=== PATIENT | female | born 1955 | race Caucasian/White ===

== ENCOUNTER 2018-07-06 07:43 | Outpatient (CLI) | payer BC ==
--- NOTE | 2018-07-06 08:57 | MMO ---
Bilateral MAMMO Bilat Screen [facility]DI+STORM. CLINICAL HISTORY: Patient is 63 years old and is seen for screening. The patient has the following family history of breast cancer: maternal aunt and cousin female, maternal. The patient has no personal history of cancer. VIEWS: The views performed were: bilateral craniocaudal with tomosynthesis and bilateral mediolateral oblique with tomosynthesis. FILMS COMPARED: The present examination has been compared to prior imaging studies performed at [facility] on 06/15/2000, 06/17/2001, 06/19/2002, 06/20/2003, 06/23/2004, 07/31/2005, 01/26/2006, 08/06/2006, 11/23/2007, 05/23/2010, 06/26/2011, 06/28/2012, 06/29/2013, 07/13/2014, 07/15/2015 and 07/16/2016. MAMMOGRAM FINDINGS: The breasts are heterogeneously dense, which could obscure a lesion on mammography. Finding 1: There is a stable intramammary lymph node seen in the right breast. Finding 2: There are benign appearing calcifications seen in both breasts. There are no suspicious masses, suspicious calcifications, or new areas of architectural distortion. IMPRESSION: THERE IS NO MAMMOGRAPHIC EVIDENCE OF MALIGNANCY. A ROUTINE FOLLOW-UP MAMMOGRAM IN 1 YEAR IS RECOMMENDED. THE RESULTS OF THIS EXAM WERE SENT TO THE PATIENT. ACR BI-RADS Category 2 - Benign finding MAMMOGRAPHY NOTE: 1. A negative mammogram report should not delay a biopsy if a dominant of clinically suspicious mass is present. 2. Approximately 10% to 15% of breast cancers are not detected by mammography. 3. Adenosis and dense breasts may obscure an underlying neoplasm.
== END 2018-07-06 07:44 | disposition home or self-care (01) ==
LOC: BICMAMMO 07:43
PROVIDERS: ATTEND Obstetrics & Gynecology
DX: Z12.31 Encounter for screening mammogram for malignant neoplasm of breast (principal); Z80.3 Family history of malignant neoplasm of breast
CPT/HCPCS: 77063; 77067

== ENCOUNTER 2018-08-05 08:35 | Outpatient (CLI) | payer BC ==
--- NOTE | 2018-08-05 09:34 | RAD ---
Biphasic upper GI: HISTORY: Epigastric pain FINDINGS: Swallowing was grossly normal. There is unobstructed flow of contrast through the esophagus into the stomach, duodenum and proximal jejunum. No obstructing mass, stricture, ulcer or diverticulum is seen. A small hiatal hernia with mild reflux is noted. There is tortuosity of the upper thoracic esophagus with impression from the aortic arch. IMPRESSION: 1. Small hiatal hernia with mild GE reflux. 2. Tortuous proximal esophagus with impression by the adjacent thoracic aorta.
== END 2018-08-05 08:36 | disposition home or self-care (01) ==
LOC: RAD 08:35
PROVIDERS: ATTEND Internal Medicine Gastroenterology
DX: R10.13 Epigastric pain (principal); R68.81 Early satiety; R63.8 Other symptoms and signs concerning food and fluid intake; Z79.1 Long term (current) use of non-steroidal anti-inflammatories (NSAID); K21.9 Gastro-esophageal reflux disease without esophagitis; K44.9 Diaphragmatic hernia without obstruction or gangrene
CPT/HCPCS: 74247

== ENCOUNTER 2018-11-14 16:21 | Inpatient (IN) | payer BC ==
[2018-11-14] MEDS ORDERED: Aspirin Chewable 81 MG TAB ONE (17:48)
[2018-11-14] MEDS ORDERED: Senokot S 8.6-50 MG TAB PO PRN (20:24)
[2018-11-14] MEDS ORDERED: Acetaminophen 325 MG TAB PO PRN (20:24)
[2018-11-14] MEDS ORDERED: Zolpidem Tartrate 5 MG TAB PO PRN (20:24)
[2018-11-14] MEDS ORDERED: Calcium Carbonate 500 MG ChewTAB PO PRN (20:24)
[2018-11-14] MEDS ORDERED: HYDROcodone/Acetaminophen 5/325 mg Tablet PO PRN (20:24)
[2018-11-14] MEDS ORDERED: Ondansetron ODT 4 MG TAB PO PRN (20:24)
[2018-11-14] MEDS ORDERED: Bisacodyl 10 MG SUPP PR PRN (20:24)
[2018-11-14] MEDS ORDERED: Ibuprofen 200 MG TAB PO PRN (20:24)
[2018-11-14] MEDS ORDERED: Loperamide HCl 2 MG CAP PO PRN (20:24)
[2018-11-14 20:43] LABS: Troponin I Less than 0.010 ng/mL (< 0.028)
[2018-11-14] MEDS: Famotidine 20 MG TAB PO SCH (20:49)
--- NOTE | 2018-11-14 22:49 | HP ---
PRIMARY CARE PHYSICIAN: Dr. Trevor Lo. REASON FOR ADMISSION: Dizziness. HISTORY OF PRESENT ILLNESS: A 63-year-old female, who has long history of frequent PVCs. The patient also had recently Holter monitoring for 3 days and the patient was found with significant number of extra beats per day. The patient also had echocardiography done in Cardiology office, but the patient does not know the result. Today, she had regular followup visit with primary care physician and at primary care physician's office, the patient felt dizziness, lightheadedness. She felt as if tingling and numbness over her entire face and subsequently settled tingling and numbness to left side of her face. The patient was not doing well and she was feeling weak and lightheaded and that is why she was sent to [facility] Emergency Room. As per report when the patient had vitals checked at primary care physician's office, heart rate was in 30s; but when the patient had electrocardiogram done in the emergency room, she was found with bigeminy with heart rate in 70s. By that time, the patient's symptoms completely resolved. She did not have any chest pain, palpitation, or dizziness in the emergency room; but the patient reports that intermittently daily basis she feels her extra beats. She denies any orthopnea, PND, or leg swelling. She never had any complete syncope in the past. She denies any fever, chills, or urinary tract infection symptoms. She denies any constipation, diarrhea, melena, or hematochezia. The patient was taking metoprolol low dose, which was prescribed by Dr. Bernstein. REVIEW OF SYSTEMS: CONSTITUTIONAL: Negative for weight loss or gain, ability to conduct usual activities. SKIN: Negative for rash, itching. EYES: Negative for double vision, pain. ENT/MOUTH: Negative for nose bleeding, neck stiffness, pain, tenderness. CARDIOVASCULAR: Negative for palpitations, dyspnea on exertion, orthopnea. RESPIRATORY: Negative for shortness of breath, wheezing, cough, hemoptysis, fever or night sweats. GASTROINTESTINAL: Negative for poor appetite, abdominal pain, heartburn, nausea, vomiting, constipation, or diarrhea. GENITOURINARY: Negative for urgency, frequency, dysuria, nocturia. MUSCULOSKELETAL: Negative for pain, swelling. NEUROLOGIC/PSYCHIATRIC: Negative for anxiety, depression. ALLERGY/IMMUNOLOGIC: Negative for skin rash, bleeding tendency. Please see my HPI for pertinent positives and negatives. All other review of systems reviewed and negative except as mentioned in HPI. PAST MEDICAL HISTORY: History of frequent PVCs, gastroesophageal reflux disease. PAST SURGICAL HISTORY: Cholecystectomy, oophorectomy, tonsillectomy. PAST PSYCHIATRIC HISTORY: Reviewed and negative. SOCIAL HISTORY: The patient is , lives at home with her . No history of tobacco, alcohol, or illicit drug abuse. FAMILY HISTORY: No family history of sudden cardiac . No family history of coronary artery disease, stroke, or cancer. ALLERGIES: NO KNOWN DRUG ALLERGY. CURRENT HOME MEDICATIONS: 1. Ibuprofen 200 mg p.o. q.6 hourly p.r.n. 2. Vitamin B12 one tablet daily. 3. Lasix 20 mg daily. 4. Toprol-XL 12.5 mg daily. 5. Multivitamin one tablet daily. 6. Protonix 40 mg p.o. daily. 7. Valacyclovir 500 mg p.o. daily. EMERGENCY ROOM COURSE: Reviewed. The patient is given aspirin. PHYSICAL EXAMINATION: VITAL SIGNS: Currently, blood pressure 156/74, pulse 72 with extra beats, respiratory rate 16, temperature 98.0, saturation 98% on room air. Weight 75.3 kg. GENERAL: The patient is currently alert and oriented, in no acute distress. HEENT: Head; normocephalic, atraumatic. Pupils round, reactive to light. Extraocular muscle intact. ENT, oropharynx within normal limits. Moist mucous membranes. No oral lesion. No pharyngeal erythema. No exudate. NECK: Supple. No JVD. No thyromegaly. No carotid bruit. No jugular venous distention. LUNGS: Clear to auscultation without any rhonchi or rales. CARDIAC: S1 and S2 regular with extra beats. No murmur. No gallop. No rub. ABDOMEN: Soft. Bowel sounds present. Nontender. Nondistended. No organomegaly. No mass. No suprapubic tenderness. BACK: Unremarkable. No CVA tenderness. EXTREMITIES: Upper extremities, passive movement of all joints are normal. Lower extremities, no edema. Good distal pulsation. SKIN: No skin rash. HEMATOLOGICAL: No lymphadenopathy. NEUROLOGIC: Nonfocal examination. SIGNIFICANT LABORATORY DATA: CBC; WBC 6.3, hemoglobin 14.0, platelets 226. BMP; sodium 141, potassium 3.9, BUN 21, creatinine 0.75, glucose 92, calcium 9.5. LFTs; AST 17, ALT 17, alkaline phosphatase 74, albumin 4.3. Cardiac enzyme negative x2. Chest x-ray based on my review, no acute cardiopulmonary process. EKG consistent with bigeminy and frequent PVCs. ASSESSMENT AND PLAN: 1. Symptomatic frequent premature ventricular contractions. As per report, the patient's heart rate was in 30s at primary care physician's office; but when the EKG was done in the emergency room, she was found with bigeminy with heart rate 70, so retrospectively I am suspecting that the patient's heart rate may be in 70s, but because of bigeminy, it was misreported by machine in 30s. The patient also has chronic bradycardia. The patient has symptomatic bradycardia this morning at primary care physician's office. The patient will be observed on telemetry floor and we will consult Cardiology. 2. Frequent premature ventricular contractions. As per recent Holter monitoring, the patient had significant number of premature ventricular contractions. This patient is not tolerating beta-tony therapy. We will check magnesium tomorrow. The patient already had echocardiography done at Cardiology Office, so we will obtain echocardiography report from their office. Cardiology will be consulted. We will defer electrophysiology evaluation to Cardiology. This patient may need an ablation also premature ventricular contractions depending upon echocardiography result and EF. 3. Gastroesophageal reflux disease. We will continue Protonix 40 mg p.o. daily. 4. Deep venous thrombosis prophylaxis, not needed because we are expecting discharge in 24 hours. 5. Gastrointestinal prophylaxis. Pepcid 20 mg p.o. b.i.d. 6. Hypertension. We will monitor the patient's blood pressure while in hospital and start selected blood pressure medication. CODE STATUS: The patient is full code. The patient's is surrogate decision maker. DISPOSITION PLAN: Based on Cardiology recommendation. We will get echocardiography result from Cardiology office. Job ID: [id number]
[2018-11-14 23:57] LABS: Troponin I Less than 0.010 ng/mL (< 0.028)
[2018-11-15 04:31] LABS: #Eosinphils 0.1 thou/uL (0.0-0.7); #Lymphocytes 2.3 thou/uL (1.20-3.40); #Monocytes 0.5 thou/uL (0.11-0.59); #Neutrophils 2.4 thou/uL (1.40-6.50); %Basophils 0.9 % (0.0-1.0); %Eosinophils 2.2 % (0.0-10.0); %Monocytes 10.1 % (0.0-10.0); %Neutrophils 44.8 % (42.0-75.0); Hemoglobin 13.4 g/dL (12.0-16.0); Mean Corpuscular HGB CONC 33.6 g/dL (32.0-36.0); Mean Corpuscular Hemoglobin 32.8 pg (27.0-31.0); Mean Corpuscular Volume 97.6 fL (78.0-98.0); Mean Platelet Volume 7.1 fL (7.4-10.4); Platelet Count 195 thou/uL (130-400); RBC Distribution Width 11.8 % (11.5-14.5); White Blood Cell (WBC) Count 5.4 thou/uL (4.8-10.8)
[2018-11-15 04:55] LABS: Anion Gap 10 mmol/L (10-20); BUN (Urea Nitrogen) 17 mg/dL (9.8-20.1); Calc. Creatinine Clearance 89 mL/min (70-130); Carbon Dioxide 26 mmol/L (23-31); Cardiac Risk 2.8 (Less than 4.5); Chloride 106 mmol/L (98-107); Cholesterol 187 mg/dl (< 200 Desired); Estimated GFR-MDRD 75; Glucose 86 mg/dL (80-115); HDL Cholesterol 68 mg/dL (>60 Neg Risk); LDL Cholesterol, Calculated 109 mg/dL; Potassium 3.5 mmol/L (3.5-5.1); Sodium 138 mmol/L (136-145); Triglycerides 50 mg/dL (Less than 150)
[2018-11-15] MEDS: Aspirin Chewable 81 MG TAB PO SCH (08:44)
[2018-11-15] MEDS: valACYclovir 500 MG TAB PO SCH (08:44)
[2018-11-15] MEDS: Multivitamin W/ Minerals 1 TAB PO SCH (08:45)
[2018-11-15] MEDS: Famotidine 20 MG TAB PO SCH ×2 (08:45→20:34)
[2018-11-15] MEDS ORDERED: Furosemide 20 MG TAB PO SCH (09:00)
[2018-11-15] MEDS ORDERED: Potassium Chloride 20 MEQ TAB PO SCH (14:15)
--- NOTE | 2018-11-15 14:19 | NM ---
CARDIAC SPECT: CLINICAL HISTORY: 63-year-old female with chest pain. TECHNIQUE: A myocardial perfusion scan was performed using the single isotope one day protocol with technetium-9 9m sestamibi. 10 mCi were injected intravenously for the rest exam followed by 33 mCi for the stress exam. Pharmacologic stress with Lexiscan was monitored and interpreted by Dr. Bernstein. FINDINGS: There is a fixed defect in the proximal inferior wall. No reversible defects are seen. GATED SPECT LVEF: 25%. WALL MOTION EXAM: Global hypokinesis. IMPRESSION: No evidence of reversible ischemia. POS: OFF
--- NOTE | 2018-11-15 16:30 | CON ---
DATE OF CONSULTATION: 11/15/2018 REASON FOR CONSULTATION: Frequent PVCs and ventricular bigeminy. HISTORY OF PRESENT ILLNESS: Ms. Perkins is a very pleasant patient. She has history of a mild cardiomyopathy in the past with mildly depressed left ventricular function. Over the years, her ejection fraction has improved within the normal range, but the most recent ejection fraction is about 50%. She has been having increasing amounts of palpitations and feelings of weakness. The weakness have correlated on the monitor when she goes ventricular bigeminy. The long-term Holter monitor indicated that she averages about 17,000 PVCs per day. She is symptomatic when she has this and does not feel as well. No chest pain or pressure. PAST MEDICAL HISTORY: She has a history of nonischemic cardiomyopathy with previous stress test. She has also undergone stress testing today. The results are pending. Never had any chest pain. She has a history of allergic reaction to ramipril with some swelling of her mouth. She was taken off ramipril, left on low-dose beta blockers. MEDICATIONS: At home, she was down to Toprol-XL 25 mg tablet half pill a day due to bradycardia that was a low-dose. ALLERGIES: MENTIONED ABOVE. SOCIAL HISTORY: No alcohol or tobacco. REVIEW OF SYSTEMS: CONSTITUTIONAL: No significant weight gain or loss. VISION: No changes. HEARING: No changes. PULMONARY: No cough or wheezing. GASTROINTESTINAL: No nausea, vomiting, or diarrhea. SKIN: No rashes. NEUROLOGIC: No unilateral weakness or numbness. PSYCHIATRIC: No unusual depression or anxiety. PHYSICAL EXAMINATION: GENERAL: On examination, this is a pleasant patient, in no distress. VITAL SIGNS: Blood pressure 140/70; pulse is 54, it is regular now, but she has frequent premature contractions. HEENT: Eyes; sclerae are nonicteric. Mouth; mucous membranes are moist. NECK: Supple. No lymphadenopathy. LUNGS: Clear. No wheezing. CARDIAC: Normal S1. Normal S2. There is currently no murmur, rub, or gallop. Currently, rhythm is regular. ABDOMEN: Soft and nontender. EXTREMITIES: No clubbing or cyanosis or edema. DIAGNOSTIC DATA: The EKG does reveal frequent PVCs and ventricular bigeminy intermittently. Hemoglobin is 13.4. The troponins are all less than 0.10. Potassium is 3.5. Stress test is pending. ASSESSMENT: 1. Symptomatic premature ventricular contractions and bigeminy. 2. Previous mild cardiomyopathy, but later improved. 3. Allergic to DEREK inhibitors. PLAN: 1. EP consultation consideration for ablation. 2. We will need to hold beta-blockers presently. Job ID: [id number]
[2018-11-15] MEDS ORDERED: Regadenoson 0.4 MG/5 ML SYRINGE ONE (16:54)
--- NOTE | 2018-11-15 17:52 | PDOC.HOSPP ---
- Subjective Encounter Date: 11/15/18 Encounter Time: 09:49 Subjective: Patient without any complaints. States she has no chest pain, no sob or lightheadedness. Slept well overnight. Awaiting stress test and cardiology eval. Afebrile. Rested comfortably. - Objective Vital Signs & Weight: Vital Signs (12 hours) Temp Pulse Resp BP Pulse Ox 11/15/18 15:42 98.4 F 65 22 H 106/58 L 95 11/15/18 13:42 97.6 F 64 16 130/80 95 11/15/18 08:06 97.5 F L 54 L 16 140/72 96 Weight Admit Weight 167 lb 8 oz Weight 166 lb 11.2 oz I&O: 11/14/18 11/15/18 11/16/18 06:59 06:59 06:59 Intake Total 480 Output Total 500 Balance -20 Result Diagrams: 11/15/18 04:12 11/15/18 04:12 Hospitalist ROS - Review of Systems Constitutional: denies: fever, chills, sweats, weakness, malaise, other Eyes: denies: pain, vision change, conjunctivae inflammation, eyelid inflammation, redness, other ENT: denies: ear pain, ear discharge, nose pain, nose discharge, nose congestion , mouth pain, mouth swelling, throat pain, throat swelling, other Respiratory: denies: cough, dry, shortness of breath, hemoptysis, SOB with excertion, pleuritic pain, sputum, wheezing, other Cardiovascular: denies: chest pain, palpitations, orthopnea, paroxysmal noc. dyspnea, edema, light headedness, other Gastrointestinal: denies: nausea, vomitting, abdominal pain, diarrhea, constipation, melena, hematochezia, other Genitourinary: denies: dysuria, frequency, incontinence, hematuria, retention, other Musculoskeletal: denies: neck pain, shoulder pain, arm pain, back pain, hand pain, leg pain, foot pain, other Skin: denies: rash, lesions, vidya, bruising, other Neurological: denies: weakness, numbness, incoordination, change in speech, confusion, seizures, other - Medication Medications: Active Medications Generic Name Dose Route Start Last Admin Trade Name Freq PRN Reason Stop Dose Admin Aspirin 81 mg 11/15/18 09:00 11/15/18 08:44 Aspirin Chewable PO 81 mg DAILY MACARIO Administration Famotidine 20 mg 11/14/18 21:00 11/15/18 08:45 Pepcid PO 20 mg BID MACARIO Administration Furosemide 20 mg 11/15/18 09:00 11/15/18 08:44 Lasix PO 20 mg DAILY MACARIO Administration Iron/Minerals/Multivitamins 1 tab 11/15/18 09:00 11/15/18 08:45 Theragran M PO 1 tab DAILY MACARIO Administration Valacyclovir HCl 500 mg 11/15/18 09:00 11/15/18 08:44 Valtrex PO 500 mg DAILY MACARIO Administration - Exam General Appearance: NAD, awake alert Eye: PERRL, anicteric sclera ENT: normocephalic atraumatic, no oropharyngeal lesions, moist mucosa Neck: supple, symmetric, no lymphadenopathy Heart: RRR, no murmur, no gallops, no rubs Respiratory: CTAB, no wheezes, no rales, no ronchi, normal chest expansion, no tachypnea Gastrointestinal: soft, non-tender, non-distended, normal bowel sounds, no palpable masses Extremities: no cyanosis, no edema Skin: normal turgor, no lesions, no rashes Neurological: CN's grossly intact, normal sensation to touch, no weakness Musculoskeletal: normal tone, normal strength, no muscle wasting Psychiatric: normal affect, normal behavior, A&O x 3 Hosp A/P (1) Lightheadedness Code(s): R42 - DIZZINESS AND GIDDINESS Status: Resolved (2) Symptomatic PVCs Code(s): I49.3 - VENTRICULAR PREMATURE DEPOLARIZATION Status: Acute Plan: Monitor, awaiting outside Echo report and cardiology review (3) GERD (gastroesophageal reflux disease) Code(s): K21.9 - GASTRO-ESOPHAGEAL REFLUX DISEASE WITHOUT ESOPHAGITIS Status: Chronic (4) Hypertension Code(s): I10 - ESSENTIAL (PRIMARY) HYPERTENSION Status: Chronic Plan: Continue home meds and monitor BP. - Plan old records reviewed/req, DVT proph w/SCDs ADDENDUM: Seen by Dr. Bernstein who advised referral to EP (Dr. Jaramillo). Also advised to hold beta blockers, he will cath tomorrow am. Further management as per Cardiology.
[2018-11-15] MEDS ORDERED: Communication Order-Pharmacy FS SCH (18:30)
[2018-11-15] MEDS: Sodium Chloride 0.9% 1,000 ML IV SCH (21:52)
--- NOTE | 2018-11-16 01:01 | CON ---
DATE OF CONSULTATION: 11/15/2018 HISTORY OF PRESENT ILLNESS: I am seeing Ms. 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 Her problems are; 1. Symptomatic frequent monomorphic PVCs. a. EKG from 11/14/2018 ER reveals left bundle inferior axis PVCs in a bigeminy fashion. b. Recent Holter monitor revealed 17,000 PVCs per day. 2. History of cardiomyopathy with LVEF improved to 50% on echocardiogram on 11/10/2018, but only 25% by nuclear scan this admit. There is an inferior wall scar as well. 3. Hypertension. ALLERGIES: POOR TOLERANCE TO BETA-BLOCKERS DUE TO BRADYCARDIA AND ANGIOEDEMA NOTED WITH RAMIPRIL. HOME MEDICATIONS: Toprol XL 25 mg a day. SUBJECTIVE: Ms. Perkins was admitted with dizziness, lightheadedness, was noted to be in bigeminal rhythm by her primary care physician, was evaluated in the ER, underwent a stress test with no evidence of reversible ischemia with inferior scar was detected, LVEF though found to be 25% in contrast to recent echo at 50. She currently is doing fair. Does not pass out. No stroke-like symptoms. Her palpitations still persist. She denies angina. No fever, chills, or cough. No neurological deficits. REVIEW OF SYSTEMS: The rest of 12-point review of systems otherwise unremarkable. PAST MEDICAL HISTORY: As above. SOCIAL HISTORY: The patient denies smoking, EtOH, or drug abuse. FAMILY HISTORY: Not contributory. OBJECTIVE DATA: VITAL SIGNS: Blood pressure 106/58, heart rate 65, respirations 22, temperature 98.4 degrees Fahrenheit. GENERAL: Alert and oriented woman, in no apparent distress. NECK: Supple. Jugular veins not distended. CHEST: Coarse without crackles. HEART: Sounds are regular to rate and rhythm. No murmur or gallop. ABDOMEN: Benign. Bowel sounds positive. EXTREMITIES: Lower extremities without edema, clubbing, or cyanosis. DATABASE: EKG is reviewed revealing sinus rhythm, occasional PVCs with bigeminy PVCs noted on some EKGs with right bundle inferior axis morphology seen. LABORATORY DATA: White count 5.4, hemoglobin 13.4, platelet count is 195. Sodium 138, potassium 3.5, BUN is 17, creatinine 0.78. Troponin levels are 0.01 and 0.01 consecutively. ASSESSMENT AND PLAN: Ms. Perkins is a pleasant 63-year-old woman, who has had a long history of premature ventricular contractions. She also had cardiomyopathy. The patient seems to have improved over years. On the other hand, nuclear scan showing LVEF 25% in contrast to recent echocardiogram where it was 50%. She has significant dizzy spell with low pulse count, likely due to pulse deficit with a frequent bigeminy of 50 runs. We discussed the etiology and implications of these premature ventricular contractions. Dr. Bernstein is planning to do a left heart cath for ischemic evaluation. Barring significant revascularization, it is reasonable to proceed with premature ventricular contraction ablation following that. I discussed the procedure, risks and benefits. We also discussed alternatives like enteric agents or pacemaker placement. She agrees with the PVC ablation understanding the chance of stroke, tamponade recurrence. We will schedule her for a soonest possible date. Thank you for allowing me to participate in the care of this patient. Job ID: [id number] MTDD
[2018-11-16] MEDS ORDERED: Lidocaine 1% (PF) 30 ML VIAL ONE ×2 (06:50→10:36)
--- NOTE | 2018-11-16 08:17 | CON ---
DATE OF CONSULTATION: 11/15/2018 ADDENDUM: Ms. Perkins stress test came back showing the ejection fraction was estimated at 25%. Suspect this is related to the PVCs. She also thought to have a fixed inferior defect. Based on this finding, it is appropriate to proceed to cardiac catheterization prior to the PVC ablation. Discussed risks of the procedure, stroke, heart attack, iodine allergy, loss of blood supply to leg or kidney, stent thrombosis, stent restenosis in the event of stenting. The patient understands and wishes to proceed. Job ID: [id number]
[2018-11-16] MEDS ORDERED: Fentanyl 100 MCG/2 ML VIAL ONE ×3 (08:36→16:01)
[2018-11-16] MEDS ORDERED: Midazolam HCl 2 mg/2 ml Vial ONE (08:36)
[2018-11-16] MEDS ORDERED: Iopamidol 370 76% 100 ML VIAL ONE (09:11)
[2018-11-16] MEDS ORDERED: Morphine 2 MG/ML SYRINGE ONE (10:14)
[2018-11-16] MEDS ORDERED: Heparin 10,000 UNITS/1 ML VIAL ONE ×2 (10:36→13:20)
[2018-11-16] MEDS ORDERED: Propofol 1,000 MG/100 ML VIAL IV ONE (10:43)
[2018-11-16] MEDS ORDERED: Phenylephrine HCL 10 MG/ML VIAL ONE (10:43)
[2018-11-16] MEDS: Famotidine 20 MG TAB PO SCH ×2 (11:50→20:29)
[2018-11-16] MEDS: Multivitamin W/ Minerals 1 TAB PO SCH (11:51)
[2018-11-16] MEDS: Aspirin Chewable 81 MG TAB PO SCH (11:51)
[2018-11-16] MEDS ORDERED: Heparin 25,000 units/D5W 500 ML ONE (13:20)
[2018-11-16] MEDS ORDERED: Isoproterenol 0.2 MG/1 ML AMP ONE (13:52)
[2018-11-16] MEDS ORDERED: Propofol 500 MG/50 ML VIAL ONE (14:40)
[2018-11-16] MEDS ORDERED: Protamine Sulfate 50 MG/5 ML VIAL ONE (15:18)
[2018-11-16] MEDS ORDERED: Promethazine HCl 25 MG/ML VIAL IM PRN (16:05)
[2018-11-16] MEDS ORDERED: Promethazine HCl 25 MG/ML VIAL SLOW IVP PRN (16:05)
[2018-11-16] MEDS ORDERED: Ondansetron HCl/PF 4 MG/2 ML Vial IVP PRN (16:05)
[2018-11-16] MEDS ORDERED: PROPOFOL 200 MG/20 ML VIAL ONE (16:06)
[2018-11-16] MEDS ORDERED: Heparin 30,000 units/30 ml VIAL ONE (16:06)
[2018-11-16] MEDS ORDERED: Ondansetron PF 4 MG/2 ML Vial ONE (16:23)
[2018-11-16] MEDS: valACYclovir 500 MG TAB PO SCH (17:18)
[2018-11-16] MEDS: Sodium Chloride 0.9% 1,000 ML IV SCH (17:25)
[2018-11-16] MEDS ORDERED: Morphine 4 MG/ML VIAL SLOW IVP PRN (17:35)
[2018-11-16] MEDS: Ondansetron PF 4 MG/2 ML Vial IVP PRN (17:59)
--- NOTE | 2018-11-16 20:28 | OP ---
DATE OF PROCEDURE: 11/16/2018 PROCEDURES PERFORMED: Electrophysiology study and radiofrequency ablation. ADDITIONAL REFERRING PHYSICIAN: Gladys Bernstein MD REASON FOR PROCEDURE: Ms. Perkins is a 63-year-old woman with history of nonischemic cardiomyopathy, reduced LVEF at 40% in the past, 25% on nuclear scan, but 50% on our recent echo and also on heart catheterization today. She has very frequent PVCs with frequent ventricular ectopic beats causing pulse deficits and subsequent bradycardia and dizzy spells. This is a chronic condition for her. She cannot tolerate beta blockers and antiarrhythmics due to significant bradycardia, here for EP study and ablation procedure. DESCRIPTION OF PROCEDURE: The patient received propofol by Anesthesia specialist. After adequate level of sedation achieved, the left and right femoral venous areas were anesthetized using subcutaneous lidocaine. In the left side, an 11-Malian sheath was used to advance an intracardiac echo probe into the right atrium and right ventricle and this probe was used to monitor the pericardial space, catheter manipulation, as well as transseptal procedure throughout the case. Also on the left femoral vein, a 6-Malian short sheath was used to advance a decapolar pacing and mapping catheter into the right atrium, right ventricle, and His bundle position. Pacing, mapping, and recording were performed at each location. Also, the LV pacing was performed in the case. The baseline following findings were noted. The baseline rhythm was sinus rhythm with frequent of from bigeminy PVCs, PVCs decreased in frequency with lightening sedation and with Keenan-Synephrine the PVCs recurred. The most frequent and also clinical morphology was a right bundle inferior axis type EKG with negative QS waves in the I and aVL. Hence the right femoral vein was accessed using ultrasound guidance and 8-Malian short sheath was introduced through which a ThermoCool SFST catheter was advanced to the right atrium and right ventricle. Baseline measurements revealed no early activation in the right ventricle for these PVCs. Following that, the short sheath was exchanged to SL1 sheath, which was used to perform a transseptal puncture after IV heparin was administered. IV heparin and the boluses and drip were given throughout the case to keep the ACT over 350. The SL1 sheath was then exchanged to Agilis deflectable sheath, which was used to advance a ThermoCool SFST catheter in the left atrium, then the left ventricle. The 3D map of the left ventricle was obtained and activation mapping of the clinical PVC was performed. Most frequent PVC location was in the anterolateral papillary muscle, base area, and the anterolateral basal area of the left ventricle. We were able to achieve activation timing 35 milliseconds prior to the QRS during PVCs in this area. Radiofrequency ablation was delivered in this area as you were observing idioventricular rhythm in these locations with morphology very similar to the baseline PVCs. Also pace matching was seen up to 97.9%. A total of 12 RF application at 40 bonilla were delivered with total duration of 21 minutes. In the end of the case, substantial reduction of the PVCs were noted of the baseline morphology. Additional morphologies were occasionally seen. The catheter was removed from the left side and IV heparin was stopped and eventually reversed with protamine. The intracardiac echo images revealed no evidence of pericardial effusion accumulation throughout the case. The catheters were removed. The long sheaths were exchanged for short sheaths and the venous sheaths were closed with Vascade closure device. A 6-Malian arterial sheath placed during a heart catheterization was also removed, which was on use for arterial access for ACT checks, not for catheter advancement. Basic EP study was performed also during the case demonstrating sinus node recovery time was 1918 with corrected sinus node recovery time was 560 milliseconds. AV Wenckebach cycle length was 390 milliseconds. Retrograde Wenckebach cycle was 560 milliseconds. Atrial ERP was 600/300 milliseconds. No definite dual AV node physiology was seen. Ventricular pacing revealed the concentric retrograde activation. No evidence of accessory pathway was seen. Burst atrial pacing did not induce sustained atrial arrhythmias. Ventricular access to my testing with all support performed with 600 and [address] trains up to 3 ventricular extrastimuli declined to the refractory period. At 400/260/200/180 milliseconds, we were able to induce sustained ventricular flutter appears to be monomorphic, which was hemodynamically unstable and sustained requiring defibrillation. This rhythm was repeatedly induced, also with catheter manipulation and also during repeated ventricular extrastimuli testing protocols. Even after removal of all additional catheters from the ventricles access for the RV apical catheter. CONCLUSION: 1. Successful mapping and ablation of right bundle inferior axis morphology PVC to the anterobasal area adjacent to the left anterolateral papillary muscle. The radiofrequency ablation eliminated the PVCs, but later during monitoring, some recurrences of the PVCs were still seen. Additional morphologies were also noted. 2. Inducible ventricular tachycardia/flutter seen with standard ventricular system extrastimulation protocol. 3. Evidence of a sinus node dysfunction with prolonged sinus node recovery time. 4. Normal AV malik and His-Purkinje function. PLAN: 1. Monitor for diminishment of PVCs. 2. Consider pacing and possibly defibrillator therapy hence inducible ventricular tachycardia and sinus node dysfunction. 3. Consider beta blockers versus antiarrhythmic agents, if recurrent PVCs are seen versus consider redo ablation. Job ID: [id number]
--- NOTE | 2018-11-16 21:54 | PDOC.HOSPP ---
- Subjective Encounter Date: 11/16/18 Encounter Time: 18:00 Subjective: Patient seen and examined for symptomatic PVCs. No CP. s/p Cath. No new complaints. No overnight events - Objective Vital Signs & Weight: Vital Signs (12 hours) Temp Pulse Resp BP Pulse Ox 11/16/18 21:00 98.1 F 60 20 126/66 96 11/16/18 19:30 96 11/16/18 17:14 98.2 F 59 L 16 112/64 97 Weight Admit Weight 167 lb 8 oz Weight 167 lb 5.294 oz I&O: 11/15/18 11/16/18 11/17/18 06:59 06:59 06:59 Intake Total 376 686 2187 Output Total 500 900 Balance -20 720 2450 Result Diagrams: 11/15/18 04:12 11/15/18 04:12 EKG Reviewed by me: Yes (Tele SR/PVCs) Hospitalist ROS - Review of Systems Respiratory: denies: cough, dry, shortness of breath, hemoptysis, SOB with excertion, pleuritic pain, sputum, wheezing, other Cardiovascular: denies: chest pain, palpitations, orthopnea, paroxysmal noc. dyspnea, edema, light headedness, other - Medication Medications: Active Medications Generic Name Dose Route Start Last Admin Trade Name Freq PRN Reason Stop Dose Admin Aspirin 81 mg 11/15/18 09:00 11/16/18 11:51 Aspirin Chewable PO Not Given DAILY MACARIO Famotidine 20 mg 11/14/18 21:00 11/16/18 20:29 Pepcid PO 20 mg BID MACARIO Administration Sodium Chloride 1,000 mls @ 100 mls/hr 11/16/18 06:00 11/16/18 17:25 Normal Saline 0.9% IV Not Given .Q10H MACARIO Iron/Minerals/Multivitamins 1 tab 11/15/18 09:00 11/16/18 11:51 Theragran M PO Not Given DAILY MACARIO Morphine Sulfate 2 mg 11/16/18 17:35 11/16/18 17:51 Morphine SLOW IVP 11/17/18 17:36 2 mg Q4H PRN Administration Pain Ondansetron HCl 4 mg 11/14/18 20:24 11/16/18 17:59 Zofran IVP 4 mg Q6H PRN Administration Nausea/Vomiting Valacyclovir HCl 500 mg 11/15/18 09:00 11/16/18 17:18 Valtrex PO Not Given DAILY MACARIO - Exam General Appearance: NAD Neck: supple, no JVD Heart: no gallops, irregular Respiratory: CTAB, no rales Gastrointestinal: soft, normal bowel sounds Extremities: no edema Hosp A/P (1) Symptomatic PVCs Code(s): I49.3 - VENTRICULAR PREMATURE DEPOLARIZATION Status: Acute (2) GERD (gastroesophageal reflux disease) Code(s): K21.9 - GASTRO-ESOPHAGEAL REFLUX DISEASE WITHOUT ESOPHAGITIS Status: Chronic (3) History of angiotensin converting enzyme inhibitor (DEREK-I) allergy Code(s): Z88.8 - ALLERGY STATUS TO OTH DRUG/MEDS/BIOL SUBST STATUS Status: Chronic (4) Hypertension Code(s): I10 - ESSENTIAL (PRIMARY) HYPERTENSION Status: Chronic - Plan Cath negative s/p EP study AICD in AM Cont other meds as below
[2018-11-17] MEDS: Ondansetron PF 4 MG/2 ML Vial IVP PRN (00:02)
[2018-11-17] MEDS: Sodium Chloride 0.9% 1,000 ML IV SCH ×2 (04:12→13:24)
[2018-11-17] MEDS ORDERED: Protamine Sulfate 50 MG/5 ML VIAL ONE (06:43)
[2018-11-17 08:39] LABS: Hemoglobin 13.8 g/dL (12.0-16.0); Platelet Count 193 thou/uL (130-400)
[2018-11-17 08:58] LABS: Anion Gap 11 mmol/L (10-20); BUN (Urea Nitrogen) 9 mg/dL (9.8-20.1); Calc. Creatinine Clearance 96 mL/min (70-130); Calcium 8.8 mg/dL (7.8-10.44); Carbon Dioxide 25 mmol/L (23-31); Chloride 106 mmol/L (98-107); Estimated GFR-MDRD 81; Glucose 101 mg/dL (80-115); Magnesium 1.7 mg/dL (1.6-2.6); Potassium 3.8 mmol/L (3.5-5.1); Sodium 138 mmol/L (136-145)
[2018-11-17] MEDS ORDERED: Magnesium 2 GM/50 ML 2 GM in Premix Bag 1 BAG IVPB SCH (09:30)
[2018-11-17] MEDS: Famotidine 20 MG TAB PO SCH ×2 (09:31→20:49)
[2018-11-17] MEDS: Multivitamin W/ Minerals 1 TAB PO SCH (09:31)
[2018-11-17] MEDS: Aspirin Chewable 81 MG TAB PO SCH (09:31)
[2018-11-17] MEDS: valACYclovir 500 MG TAB PO SCH (09:31)
--- NOTE | 2018-11-17 09:33 | PRG ---
DATE OF SERVICE: 11/17/2018 SUBJECTIVE: Ms. Perkins is doing well today. Yesterday cardiac catheterization revealed no obstructive coronary disease. VT study did reveal that she is easily inducible. She had a lot of nausea after the anesthesia, but is doing well now. OBJECTIVE: VITAL SIGNS: Blood pressure 130/60, pulse 80. LUNGS: Clear. CARDIAC: Normal S1, normal S2. ASSESSMENT: 1. History of PVCs and bigeminy. 2. Cardiomyopathy with an ejection fraction of 50%. 3. Easily inducible ventricular tachycardia. PLAN: Plan is to proceed with defibrillator implantation today followed by institution of beta blockers, probably carvedilol. The patient could be released home tomorrow if doing well. I will be out this weekend. I will be out tomorrow. Job ID: [id number]
[2018-11-17 12:10] VITALS: BMI 27.3
[2018-11-17] MEDS ORDERED: Iopamidol 370 76% 50 ML VIAL FS ONE (15:17)
[2018-11-17] MEDS ORDERED: Scopolamine 1.5 mg/72 hour Patch ONE (15:51)
[2018-11-17] MEDS ORDERED: Midazolam HCl 2 mg/2 ml Vial ONE ×2 (16:26→16:52)
[2018-11-17] MEDS ORDERED: Fentanyl 100 MCG/2 ML VIAL ONE (16:48)
[2018-11-17] MEDS ORDERED: diphenhydrAMINE 50 MG/ML VIAL ONE (17:42)
--- NOTE | 2018-11-17 18:30 | RAD ---
CHEST ONE VIEW: 11/17/18 HISTORY: Pacemaker placement. COMPARISON: 11/14/18. FINDINGS: Cardiac silhouette is magnified by projection. Pulmonary vasculature unremarkable. Mediastinum is mid line. Dual lead left subclavian cardiac electronic device is now in place with leads overlying the ri ght atrium and right ventricle. No evidence of pneumothorax. personnel monitor leads overlie the chest. IMPRESSION: Left subclavian cardiac electronic device is in good radiographic position without evidence of compli cation. POS: [facility]
--- NOTE | 2018-11-17 19:09 | PDOC.HOSPP ---
- Subjective Encounter Date: 11/17/18 Encounter Time: 19:08 Subjective: Patient seen and examined for symptomatic PVCs. No CP or SOB s/p AICD. No new complaints. No overnight events - Objective Vital Signs & Weight: Vital Signs (12 hours) Temp Pulse Resp BP Pulse Ox 11/17/18 18:46 98.8 F 64 17 149/66 H 99 11/17/18 13:28 97.9 F 64 17 127/58 L 96 11/17/18 09:31 95 11/17/18 07:24 97.8 F 87 18 131/60 95 Weight Admit Weight 167 lb 8 oz Weight 169 lb 8 oz I&O: 11/16/18 11/17/18 11/18/18 06:59 06:59 06:59 Intake Total 720 4877 Output Total 2300 Balance 720 2577 Result Diagrams: 11/17/18 08:32 11/17/18 08:32 EKG Reviewed by me: Yes (Tele SR) Hospitalist ROS - Review of Systems Cardiovascular: denies: chest pain, palpitations, orthopnea, paroxysmal noc. dyspnea, edema, light headedness, other Gastrointestinal: denies: nausea, vomitting, abdominal pain, diarrhea, constipation, melena, hematochezia, other - Medication Medications: Active Medications Generic Name Dose Route Start Last Admin Trade Name Freq PRN Reason Stop Dose Admin Acetaminophen 650 mg 11/14/18 20:24 11/17/18 10:37 Tylenol PO 650 mg Q4H PRN Administration Headache/Fever/Mild Pain (1-3) Aspirin 81 mg 11/15/18 09:00 11/17/18 09:31 Aspirin Chewable PO 81 mg DAILY MACARIO Administration Famotidine 20 mg 11/14/18 21:00 11/17/18 09:31 Pepcid PO 20 mg BID MACARIO Administration Iron/Minerals/Multivitamins 1 tab 11/15/18 09:00 11/17/18 09:31 Theragran M PO 1 tab DAILY MACARIO Administration Ondansetron HCl 4 mg 11/14/18 20:24 11/17/18 00:02 Zofran IVP 4 mg Q6H PRN Administration Nausea/Vomiting Valacyclovir HCl 500 mg 11/15/18 09:00 11/17/18 09:31 Valtrex PO 500 mg DAILY MACARIO Administration - Exam Heart: RRR, no gallops Respiratory: CTAB, no rales Gastrointestinal: soft, non-tender Extremities: no edema Hosp A/P (1) Symptomatic PVCs Code(s): I49.3 - VENTRICULAR PREMATURE DEPOLARIZATION Status: Acute (2) GERD (gastroesophageal reflux disease) Code(s): K21.9 - GASTRO-ESOPHAGEAL REFLUX DISEASE WITHOUT ESOPHAGITIS Status: Chronic (3) History of angiotensin converting enzyme inhibitor (DEREK-I) allergy Code(s): Z88.8 - ALLERGY STATUS TO OTH DRUG/MEDS/BIOL SUBST STATUS Status: Chronic (4) Hypertension Code(s): I10 - ESSENTIAL (PRIMARY) HYPERTENSION Status: Chronic (5) Inducible ventricular tachycardia Code(s): I47.2 - VENTRICULAR TACHYCARDIA Status: Acute - Plan s/p AICD Cath negative s/p EP study this admission DC IVF when tolerating PO Cont other meds as below
[2018-11-18] MEDS ORDERED: Morphine 2 MG/ML SYRINGE SLOW IVP PRN (03:25)
[2018-11-18] MEDS ORDERED: Sodium Chloride 0.9% 1,000 ML IV SCH (03:30)
--- NOTE | 2018-11-18 06:57 | PRG ---
DATE OF SERVICE: 11/18/2018 SUBJECTIVE: Ms. Perkins is doing well. No complaints. OBJECTIVE: VITAL SIGNS: Blood pressure 118/66, pulse is at 70. LUNGS: Clear. CARDIAC: Normal S1, normal S2. On the monitor, she still has bigeminy. ASSESSMENT: 1. Ventricular bigeminy. 2. Cardiomyopathy. 3. Status post pacemaker defibrillator. PLAN: 1. Toprol-XL 50 mg a day. 2. Okay to stop aspirin. She does not have any coronary disease. 3. Okay to be released home to see us in the office in a couple of weeks. She also is to be seen by Dr. Jaramillo. Job ID: [id number]
[2018-11-18 07:14] VITALS: BP 131/60; TEMP 98.1
--- NOTE | 2018-11-18 08:05 | DIS ---
DATE OF ADMISSION: 11/15/2018 DATE OF DISCHARGE: 11/18/2018 DISCHARGE DISPOSITION: Home. FOLLOWUP: 1. Follow up with primary care physician, Dr. Trevor Lo, in 1 week. 2. The patient will also follow up with Cardiology, Dr. Bernstein and Electrophysiology, Dr. Jaramillo in 2 weeks. DISCHARGE MEDICATION: 1. Toprol-XL 50 mg daily. 2. Protonix 40 mg daily as needed. 3. Valtrex 500 mg daily. 4. Multivitamin one tablet daily. 5. Vitamin B12 250 mcg daily. 6. Ibuprofen as needed. 7. Lasix has been changed to as needed. 8. Keflex 500 mg Q6hr x 1 week. 9. Tramadol PRN for pain. The patient was seen and examined on the day of discharge. Denies any new complaints. No chest pain, shortness of breath, palpitations. BRIEF HOSPITAL COURSE: The patient is a 63-year-old female with a long history of frequent PVCs with recent Holter monitoring, presented to the hospital with dizziness and palpitations. Please refer to the history and physical for further details. The patient was admitted to the hospital with a diagnosis of symptomatic frequent premature ventricular contractions. She was seen by Cardiology as well as Electrophysiology, Dr. Jaramillo. She underwent a Cardiolite stress test that showed ejection fraction 25% with global hypokinesis. A cardiac catheterization was performed by Dr. Bernstein, that showed left ventricular ejection fraction of 50% with normal coronaries. On 16 November, the patient underwent electrophysiology study as well as radiofrequency ablation. She was found to have inducible ventricular tachycardia/flutter. She underwent AICD placement yesterday. She has been started on Toprol-XL. She has been cleared by Cardiology as well as Electrophysiology for discharge. FINAL DIAGNOSES: 1. Symptomatic premature ventricular complexes with ventricular bigeminy. 2. Inducible ventricular tachycardia on electrophysiology study. 3. Normal coronaries. 4. Gastroesophageal reflux disease. 5. History of angiotensin-converting enzyme inhibitor allergy. 6. Hypertension. 7. Mild hypomagnesemia, replaced. 8. Chronic kidney disease stage 2. PLAN: Plan of care was discussed with the patient in detail. She stated understanding. Job ID: [id number] [facility]
[2018-11-18] MEDS ORDERED: Cephalexin 250 MG CAP PO SCH (08:30)
[2018-11-18] MEDS ORDERED: Metoprolol Tartrate 25 MG TAB PO SCH (09:00)
[2018-11-18] MEDS: Famotidine 20 MG TAB PO SCH (09:41)
[2018-11-18] MEDS: valACYclovir 500 MG TAB PO SCH (09:41)
[2018-11-18] MEDS: Multivitamin W/ Minerals 1 TAB PO SCH (09:41)
== END 2018-11-18 10:17 | disposition home or self-care (01) | DRG 225 ==
LOC: SCSER 16:21 → 2SW 19:19 → OBSVTOIN 11-15 18:08 → 2NO 11-15 21:03
PROVIDERS: ADMIT Internal Medicine; ATTEND Internal Medicine
PROC: 4A023N7 Measurement of Cardiac Sampling and Pressure, Left Heart, Percutaneous Approach (ICD-10-PCS; 2018-11-15)
PROC: 02583ZZ Destruction of Conduction Mechanism, Percutaneous Approach (ICD-10-PCS; 2018-11-15)
PROC: B2111ZZ Fluoroscopy of Multiple Coronary Arteries using Low Osmolar Contrast (ICD-10-PCS; 2018-11-15)
PROC: B2151ZZ Fluoroscopy of Left Heart using Low Osmolar Contrast (ICD-10-PCS; 2018-11-15)
PROC: 4A023FZ Measurement of Cardiac Rhythm, Percutaneous Approach (ICD-10-PCS; 2018-11-15)
PROC: 4A0234Z Measurement of Cardiac Electrical Activity, Percutaneous Approach (ICD-10-PCS; 2018-11-15)
PROC: 02K83ZZ Map Conduction Mechanism, Percutaneous Approach (ICD-10-PCS; 2018-11-15)
PROC: 0JH608Z Insertion of Defibrillator Generator into Chest Subcutaneous Tissue and Fascia, Open Approach (ICD-10-PCS; principal; 2018-11-17)
PROC: 02HK3KZ Insertion of Defibrillator Lead into Right Ventricle, Percutaneous Approach (ICD-10-PCS; 2018-11-17)
PROC: 02H63KZ Insertion of Defibrillator Lead into Right Atrium, Percutaneous Approach (ICD-10-PCS; 2018-11-17)
DX: I49.3 Ventricular premature depolarization (principal); I47.2 Ventricular tachycardia; K21.9 Gastro-esophageal reflux disease without esophagitis; I42.8 Other cardiomyopathies; R00.8 Other abnormalities of heart beat; I12.9 Hypertensive chronic kidney disease with stage 1 through stage 4 chronic kidney disease, or unspecified chronic kidney disease; N18.2 Chronic kidney disease, stage 2 (mild); E83.42 Hypomagnesemia; Z88.8 Allergy status to other drugs, medicaments and biological substances
CPT/HCPCS: 36415; 71045; 76942; 78452; 80048; 80053; 80061; 82550; 83735; 84484; 85014; 85018; 85025; 85049; 85347; 90471; 90732; 92960; 93005; 93010; 93017; 93458; 93462; 93621; 93623; 93654; 93662; 99152; 99153; A9500; C1721; C1730; C1732; C1759; C1769; C1777; C1898; G0009; J0690; J1200; J1644; J2001; J2250; J2270; J2370; J2405; J2704; J2720; J2785; J3010; J3475; J3490; Q0162; Q9967

== ENCOUNTER 2019-01-09 16:02 | Outpatient (CLI) | payer BC ==
--- NOTE | 2019-01-09 17:29 | RAD ---
RIGHT SHOULDER THREE VIEWS: HISTORY: Right shoulder pain. FINDINGS: The humeral head is normally positioned. The AC joint is normally aligned. No significant degenerativ e change. IMPRESSION: No acute abnormality. POS: [facility]
--- NOTE | 2019-01-09 17:31 | RAD ---
CERVICAL SPINE THREE VIEWS: HISTORY: Neck pain. FINDINGS: Mild degenerative changes in the cervical spine. Mild spurring from the anterior cervical vertebrae. Vertebral bodies maintain height and alignment. Disk spaces are maintained. Mild spondylosis is seen at C3-C4, C4-C5 and C5-C6. Mild facet hypertrophy. IMPRESSION: There are mild degenerative changes of the cervical spine as described. POS: [facility]
== END 2019-01-09 16:03 | disposition home or self-care (01) ==
LOC: SCSRAD 16:02
PROVIDERS: ATTEND Nurse Practitioner Family
DX: M54.2 Cervicalgia (principal); M79.601 Pain in right arm; M47.812 Spondylosis without myelopathy or radiculopathy, cervical region
CPT/HCPCS: 72040

== ENCOUNTER 2019-02-09 08:31 | Outpatient (CLI) | payer BC ==
--- NOTE | 2019-02-09 09:42 | RAD ---
CERVICAL SPINE 3 VIEWS: Lateral views were obtained in neutral, flexion, and extension. INDICATION: Neck pain. FINDINGS: Cervical vertebrae maintain height and alignment in the neutral position. Mild degenerative changes are noted. Mild osteophytes are seen from the cervical vertebrae. Mild spondylosis seen posteriorly at C3-4, C4-5, and C5-6. Slight anterolisthesis at C4-5 with flexion. No other change in alignment . Disk spaces are preserved. IMPRESSION: There are mild degenerative changes as described. POS: [facility]
== END 2019-02-09 08:32 | disposition home or self-care (01) ==
LOC: TBSIIMAG 08:31
PROVIDERS: ATTEND Neurological Surgery
DX: M54.2 Cervicalgia (principal); M47.812 Spondylosis without myelopathy or radiculopathy, cervical region
CPT/HCPCS: 72040

== ENCOUNTER 2019-03-10 12:27 | Outpatient (CLI) | payer BC ==
--- NOTE | 2019-03-10 13:56 | MRI ---
MR CERVICAL SPINE WITHOUT CONTRAST INDICATION: Radiculopathy TECHNIQUE: Multiplanar multisequence MR images were obtained of the cervical spine without contrast. COMPARISON: Cervical spinal radiographs dated February 09, 2019. FINDINGS: Posterior fossa: Within normal limits. Bone marrow signal intensity: Normal Spinal alignment: Normal. Craniocervical junction: Normal appearing. Prevertebral and perivertebral soft tissues: Visualized soft tissues appear within normal limits. Vertebral levels: C2-C3: No appreciable central canal or neuroforaminal narrowing. C3-4: There is a mild broad-based bulge with uncovertebral hypertrophy and facet joint degenerative c hange inducing mild to moderate right neural foraminal narrowing. C4-5: There is mild facet joint degenerative change but no appreciable central canal or neural isabela inal narrowing. C5-C6: There is a mild broad-based bulge with a superimposed left paracentral protrusion. The protrus ion causes mild effacement of the ventral subarachnoid space without definite cord compression. There is no appreciable neural foraminal narrowing. C6-C7:, There is a right paracentral disc protrusion causing severe narrowing of the entrance to the right C6-7 neural foramina best seen on image 22 series 7 and image 22 of series 3. No left-sided neural foraminal narrowing is demonstrated. C7-T1: No appreciable central canal or neuroforaminal narrowing. IMPRESSION: 1. Mild-sized left paracentral disc protrusion at C5-6 causing mild effacement of the ventral subarac hnoid space without definite cord compression. 2. Moderate to prominent right paracentral disc protrusion at C6-7 causing severe narrowing to the en trance to the right C6-7 neural foramina with potential for impingement of the exiting right nerve root. 3. Mild to moderate right neural foraminal narrowing at C3-4 due to uncovertebral hypertrophy and fac et joint degenerative change.
--- NOTE | 2019-03-10 14:18 | RAD ---
EXAM: XR Cerv Sp Ap Lat STANDARD PROVIDED CLINICAL HISTORY: Neck pain COMPARISON: 02/09/2019 FINDINGS: Lateral flexion, lateral extension and neutral lateral views of the cervical spine submitted. Cervica l alignment appears normal. There is no evidence for significant translational motion with flexion and extension. Vertebral body heights and intervertebral disc space heights appear preserved. No prev ertebral soft tissue swelling apparent. IMPRESSION: As above.
== END 2019-03-10 12:28 | disposition home or self-care (01) ==
LOC: MRI 12:27
PROVIDERS: ATTEND Neurological Surgery
DX: M54.12 Radiculopathy, cervical region (principal)
CPT/HCPCS: 72040; 72141